=== PATIENT | female | born 1995 | race African-American/Black ===

== ENCOUNTER 2017-02-11 11:24 | Emergency (ER) | payer SELFPAY ==
[~2017-02-11] VITALS: Ht 157.5 cm; Wt 67.0 kg
[2017-02-11 11:51] VITALS: BP 112/59
== END 2017-02-11 15:34 | disposition left against medical advice (07) ==
LOC: ER 13:49
DX: Z53.21 Procedure and treatment not carried out due to patient leaving prior to being seen by health care provider (principal)

== ENCOUNTER 2017-05-08 19:30 | Emergency (ER) | payer SELFPAY ==
[2017-05-09] MEDS ORDERED: IBUP-2030 PO (15:57)
== END 2017-05-08 21:17 | disposition left against medical advice (07) ==
LOC: ER 20:56
DX: R05 Cough (principal); Z53.21 Procedure and treatment not carried out due to patient leaving prior to being seen by health care provider

== ENCOUNTER 2017-05-09 15:19 | Emergency (ER) | payer SELFPAY ==
[~2017-05-09] VITALS: Ht 157.5 cm; Wt 64.0 kg
[2017-05-09] MEDS ORDERED: IBUP-2030 PO (15:57)
[2017-05-09] MEDS ORDERED: ACETAMINOPHEN 325MG TABLET PO ONE (21:00)
[2017-05-09 21:47] LABS: CLARITY URINE CLEAR (CLEAR); COLOR URINE YELLOW (YELLOW); KETONES URINE 2+ (NEGATIVE); LEUKOCYTE ESTERASE URINE NEGATIVE (NEGATIVE); NITRITE URINE NEGATIVE (NEGATIVE); OCCULT BLOOD URINE 3+ (NEGATIVE); PH URINE 5.5 (4.5-8.0); PROTEIN URINE NEGATIVE (NEGATIVE); SPECIFIC GRAVITY URINE 1.023 (1.005-1.030); UROBILINOGEN URINE 0.2 E.U./dL (0.2-1.0)
[2017-05-09] MEDS ORDERED: IBUPROFEN 600MG TABLET PO ONE (22:45)
[2017-05-10 00:13] LABS: BASOPHILS % 0.6 % (0.0-2.0); EOSINOPHILS % 0.3 % (0.0-5.0); HEMOGLOBIN. 12.3 g/dL (12.0-16.0); LYMPHOCYTES % 23.7 % (20.0-50.0); MEAN CORPUSCULAR HEMOGLOBIN 29.6 pg (28.0-32.0); MEAN CORPUSCULAR VOLUME 86.5 fL (81.0-99.0); MEAN PLATELET VOLUME 9.5 fl (7.4-10.4); MONOCYTES % 11.1 % (2.0-8.0); NEUTROPHILS % 64.3 % (40.0-76.0); PLATELET 155 x1000/uL (130-400); RED BLOOD CELL COUNT 4.17 mill/uL (4.2-5.4); RED CELL DISTRIBUTION WIDTH 12.7 % (11.6-14.6)
[2017-05-10 00:18] LABS: CHLORIDE 107 mEq/L (98-107)
[2017-05-10 00:27] LABS: CARBON DIOXIDE 22 mEq/L (21-32)
[2017-05-10 00:28] LABS: HCG SCREEN NEGATIVE
[2017-05-10 01:35] VITALS: BP 101/61
== END 2017-05-10 01:41 | disposition home or self-care (01) ==
LOC: ER 16:28
DX: J06.9 Acute upper respiratory infection, unspecified (principal); Z98.890 Other specified postprocedural states
CPT/HCPCS: 36415; 71045; 80048; 81001; 84703; 85025; 87804; 99285; Z7610

== ENCOUNTER 2017-09-12 19:59 | Emergency (ER) | payer SELFPAY ==
[~2017-09-12] VITALS: Ht 157.5 cm; Wt 70.0 kg
[~2017-09-12 19:59] MED LIST: IBUP-2030 PO
[2017-09-12 20:48] VITALS: BP 100/61
== END 2017-09-13 04:04 | disposition left against medical advice (07) ==
LOC: ER 22:29
DX: R68.84 Jaw pain (principal); Z53.21 Procedure and treatment not carried out due to patient leaving prior to being seen by health care provider
CPT/HCPCS: 81025

== ENCOUNTER 2017-11-29 00:48 | Emergency (ER) | payer SELFPAY ==
[~2017-11-29] VITALS: Ht 157.5 cm; Wt 74.0 kg
[2017-11-29] MEDS ORDERED: ACETAMINOPHEN 325MG TABLET PO ONE (05:30)
[2017-11-29] MEDS ORDERED: LIDOCAINE HCL 1% 20ML VIAL (Pyxis) INJ INFIL ONE (07:15)
[2017-11-29] MEDS ORDERED: LIDOCAINE HCL/PF 1% 10 MG/ML 5ML VIAL ONE (07:40)
[2017-11-29 08:23] VITALS: BP 112/68
== END 2017-11-29 08:25 | disposition home or self-care (01) ==
LOC: ER 00:48
DX: S01.511A Laceration without foreign body of lip, initial encounter (principal); Z98.890 Other specified postprocedural states; Y04.0XXA Assault by unarmed brawl or fight, initial encounter; Y93.89 Activity, other specified; Y92.89 Other specified places as the place of occurrence of the external cause
CPT/HCPCS: 81025; 99283; J3490

== ENCOUNTER 2017-12-01 13:32 | Emergency (ER) | payer SELFPAY ==
[~2017-12-01] VITALS: Ht 160 cm; Wt 73.0 kg
[2017-12-01 13:38] VITALS: BP 106/50
== END 2017-12-01 14:23 | disposition home or self-care (01) ==
LOC: ER 14:07
DX: Z48.00 Encounter for change or removal of nonsurgical wound dressing (principal)
CPT/HCPCS: 99281

== ENCOUNTER 2017-12-04 21:47 | Emergency (ER) | payer SELFPAY ==
[~2017-12-04] VITALS: Ht 157.5 cm; Wt 73.0 kg
[2017-12-04 22:46] VITALS: BP 117/58
== END 2017-12-05 01:35 | disposition left against medical advice (07) ==
LOC: ER 21:47
DX: S01.511D Laceration without foreign body of lip, subsequent encounter (principal); Z98.890 Other specified postprocedural states; Z53.21 Procedure and treatment not carried out due to patient leaving prior to being seen by health care provider; X58.XXXD Exposure to other specified factors, subsequent encounter